=== PATIENT | male | born 1970 | race Caucasian/White ===

== ENCOUNTER 2016-08-02 21:39 | Inpatient (IN) ==
--- NOTE | 2016-08-02 21:46 | Emergency Department Note ---
Disposition Clinical Impression: Bipolar disorder, Suicidal ideation Disposition: Still a Patient Condition: Fair Referrals: NO,PCP [Primary Care Provider] - Forms: ED Satisfaction Letter Time of Disposition: 07:00 Psych HPI - General Chief Complaint: ED Psychiatric Symptoms Stated Complaint: SI/auditory hallucinations Time Seen by Provider: 08/02/16 21:42 Source: patient, EMS Mode of arrival: EMS Limitations: no limitations Nursing Notes Reviewed: Yes Vital Signs Reviewed: Yes - History of Present Illness HPI Narrative: Pt to ED c/o suicidal thoughts and auditory hallucinations. States is been hearing voices all day. Has been off his Respinol and Depakote for the past 4 days. Suicidal thoughts with a plan to jump in oncoming traffic. History of suicide attempt 1 in the past. The chest pain difficult in breathing abdominal pain fevers or vomiting. Pt complaint: suicidal ideation - Related Data Home Medications Medication Instructions Recorded Confirmed Divalproex (24 HR) [Depakote ER 2,000 mg PO HS 08/02/16 08/02/16 (24 HR)] RisperiDONE [RisperDAL] 2 mg PO DAILY 08/02/16 08/02/16 Allergies Allergy/AdvReac Type Severity Reaction Status Date / Time Penicillins Allergy Hives Verified 08/02/16 22:06 broccoli Allergy Swelling Uncoded 08/02/16 22:07 of Lip/Tongue/Throat All systems ED: reviewed and negative except as stated. Constitutional: Denies: fever Cardiovascular: Denies: chest pain Respiratory: Denies: cough Gastrointestinal: Denies: abdominal pain, vomiting, diarrhea Past Medical History - Past Medical History Attestation: Yes The following information was validated with the patient. Source: patient Medical history: Reports: non-contributory Surgical history: Reports: no surgical history, non-contributory Psychiatric history: Reports: anxiety, bipolar, depression, schizophrenia - Social History Smoking Status: Current every day smoker Smokeless Tobacco Status: No Alcohol use: Reports: none Drug use: Reports: marijuana Physical Exam Patient is calm and cooperative sitting on the edge of the bed in no acute distress. - General Limitations: no limitations General appearance: alert, in no apparent distress - Head Head exam: atraumatic, normocephalic - Eye Eye exam: Present: normal appearance, PERRL, EOMI - ENT ENT exam: normal exam - Neck Neck exam: Present: normal inspection - Chest Chest inspection: Present: normal inspection - Respiratory Respiratory exam: Present: normal lung sounds bilaterally - Cardiovascular Cardiovascular exam: Present: regular rate, normal rhythm, normal heart sounds - Abdominal Exam Abdominal exam: Present: soft, Non-Tender. Absent: tenderness, distention, guarding, rebound, rigidity - Neurological Exam Neurological exam: Present: alert, oriented X3, CN II-XII intact - Psychiatric Psychiatric exam: Present: normal affect, normal mood, suicidal ideation - Skin Skin exam: Present: warm, dry, intact Course Course Narrative: Patient, cooperative at this time. Agreeable to plan. [place] slip on chart. - Reevaluation(s) Reevaluation #1: Report called to one a. Time: 22:33 Reevaluation #2: Patient evaluated by psych. Attempting placement at this time. Time: 02:23 Reevaluation #3: Still attempting to contact psychiatrist at [facility] in [place]. Time: 04:33 Additional Reevaluation(s): Patient signed out to day shift at 0700 pending psych placement Vital Signs Temperature 98.1 F 08/02/16 21:40 Pulse Rate 81 08/02/16 21:40 Respiratory Rate 20 08/02/16 21:40 Blood Pressure 176/129 08/02/16 21:40 O2 Sat by Pulse Oximetry 96 08/02/16 21:40 Temperature 97.9 F 08/03/16 04:00 Pulse Rate 65 08/03/16 04:00 Respiratory Rate 20 08/03/16 04:00 Blood Pressure 160/92 08/03/16 04:00 O2 Sat by Pulse Oximetry 96 08/03/16 04:00 Oxygen Delivery Oxygen Delivery Room Air Psych - Lab Data Result diagrams: 08/02/16 21:54 08/02/16 21:54 Lab Results 08/02/16 08/02/16 08/02/16 Range/Units 21:45 21:45 21:54 WBC 10.0 (4.3-11.1) K/mcL RBC 4.78 (4.19-5.50) M/mcL Hgb 14.3 (12.9-16.9) g/dL Hct 42.4 (37.5-50.1) % MCV 88.7 (83.0-100.0) fL MCH 29.9 (28.0-33.3) pg MCHC 33.7 (31.6-35.5) g/dL RDW 15.2 H (11.5-14.5) % Plt Count 426 H (140-400) K/mcL MPV 8.4 L (9.4-12.4) fL Immature Gran % 0.3 (0-4) % Seg Neutrophils % 66.2 % Lymphocytes % 23.9 % Monocytes % 9.1 % Eosinophils % 0.2 % Basophils % 0.3 % Neutrophils # 6.6 (1.6-8.9) K/mcL Lymphocytes # 2.4 (0.6-4.6) K/mcL Monocytes # 0.9 (0.0-1.3) K/mcL Eosinophils # 0.0 (0.0-0.6) K/mcL Basophils # 0.0 (0.0-0.2) K/mcL Immature Plt Fraction 1.6 (1.1-6.1) % Sodium (136-145) mEq/L Potassium (3.5-4.5) mEq/L Chloride (98-109) mEq/L Carbon Dioxide (19-29) mEq/L BUN (8-26) mg/dL Creatinine (0.72-1.25) mg/dL Est GFR ( Amer) (> 60) Est GFR (Non-Af Amer) (> 60) BUN/Creatinine Ratio (6-26) Glucose (70-99) mg/dL Calculated Osmolality (280-300) Calcium (8.6-10.8) mg/dL Total Bilirubin (0.2-1.2) mg/dL Direct Bilirubin (0.0-0.5) mg/dL Indirect Bilirubin (0.0-1.2) mg/dL AST (5-34) Units/L ALT (0-55) Units/L Alkaline Phosphatase (38-126) Units/L Serum Total Protein (6.0-8.3) g/dL Albumin (3.5-5.0) g/dL Globulin (2.4-3.5) g/dL Albumin/Globulin Ratio (1.1-2.2) Amylase (25-125) Units/L Lipase (8-78) Units/L Urine Color Dark Yellow (Yellow) Urine Clarity Clear (Clear) Urine pH 5.5 (5.0-8.0) pH Units Ur Specific [place] > 1.030 H (1.010-1.025) Urine Protein Trace (Neg-Trace) mg/dL Urine Glucose (UA) Normal (Normal) mg/dL Urine Ketones Negative (Negative) mg/dL Urine Blood Negative (Negative) Urine Nitrite Negative (Negative) Urine Bilirubin Small H (Negative) Urine Urobilinogen Normal (Normal) mg/dL Ur Leukocyte Esterase Negative (Negative) Urine Microscopic RBC 3-5 H (0-3) per hpf Urine Microscopic WBC 0-3 (0-3) per hpf Ur Squamous Epith Cells Moderate H (None-Few) per lpf Urine Bacteria None Seen (None-Few) per hpf Hyaline Casts None Seen (None-Few) per lpf Salicylates (15-30) mg/dL Urine Opiates Screen Negative (Wdlxcz=178) ng/mL Acetaminophen (10-30) mcg/mL Ur Barbiturates Screen Negative (Ymfyap=085) ng/mL Ur Phencyclidine Scrn Negative (Cutoff=25) ng/mL Ur Amphetamines Screen Negative (Nwpfem=3602) ng/mL U Benzodiazepines Scrn Negative (Borchy=407) ng/mL Urine Cocaine Screen Positive H (Cutoff= 300) ng/mL U Marijuana (THC) Screen Positive H (Cutoff = 50) ng/mL Ethyl Alcohol (0-10) mg/dL 08/02/16 Range/Units 21:54 WBC (4.3-11.1) K/mcL RBC (4.19-5.50) M/mcL Hgb (12.9-16.9) g/dL Hct (37.5-50.1) % MCV (83.0-100.0) fL MCH (28.0-33.3) pg MCHC (31.6-35.5) g/dL RDW (11.5-14.5) % Plt Count (140-400) K/mcL MPV (9.4-12.4) fL Immature Gran % (0-4) % Seg Neutrophils % % Lymphocytes % % Monocytes % % Eosinophils % % Basophils % % Neutrophils # (1.6-8.9) K/mcL Lymphocytes # (0.6-4.6) K/mcL Monocytes # (0.0-1.3) K/mcL Eosinophils # (0.0-0.6) K/mcL Basophils # (0.0-0.2) K/mcL Immature Plt Fraction (1.1-6.1) % Sodium 137 (136-145) mEq/L Potassium 3.8 (3.5-4.5) mEq/L Chloride 105 (98-109) mEq/L Carbon Dioxide 24 (19-29) mEq/L BUN 15 (8-26) mg/dL Creatinine 0.79 (0.72-1.25) mg/dL Est GFR ( Amer) > 60 (> 60) Est GFR (Non-Af Amer) > 60 (> 60) BUN/Creatinine Ratio 19 (6-26) Glucose 101 H (70-99) mg/dL Calculated Osmolality 285 (280-300) Calcium 9.4 (8.6-10.8) mg/dL Total Bilirubin 1.0 (0.2-1.2) mg/dL Direct Bilirubin 0.4 (0.0-0.5) mg/dL Indirect Bilirubin 0.6 (0.0-1.2) mg/dL AST 36 H (5-34) Units/L ALT 26 (0-55) Units/L Alkaline Phosphatase 78 (38-126) Units/L Serum Total Protein 7.4 (6.0-8.3) g/dL Albumin 3.9 (3.5-5.0) g/dL Globulin 3.5 (2.4-3.5) g/dL Albumin/Globulin Ratio 1.1 (1.1-2.2) Amylase 33 (25-125) Units/L Lipase 20 (8-78) Units/L Urine Color (Yellow) Urine Clarity (Clear) Urine pH (5.0-8.0) pH Units Ur Specific [place] (1.010-1.025) Urine Protein (Neg-Trace) mg/dL Urine Glucose (UA) (Normal) mg/dL Urine Ketones (Negative) mg/dL Urine Blood (Negative) Urine Nitrite (Negative) Urine Bilirubin (Negative) Urine Urobilinogen (Normal) mg/dL Ur Leukocyte Esterase (Negative) Urine Microscopic RBC (0-3) per hpf Urine Microscopic WBC (0-3) per hpf Ur Squamous Epith Cells (None-Few) per lpf Urine Bacteria (None-Few) per hpf Hyaline Casts (None-Few) per lpf Salicylates < 5.0 L (15-30) mg/dL Urine Opiates Screen (Bcoqwz=814) ng/mL Acetaminophen < 1.0 L (10-30) mcg/mL Ur Barbiturates Screen (Kaybgg=326) ng/mL Ur Phencyclidine Scrn (Cutoff=25) ng/mL Ur Amphetamines Screen (Xubasu=3510) ng/mL U Benzodiazepines Scrn (Cdcbbn=018) ng/mL Urine Cocaine Screen (Cutoff= 300) ng/mL U Marijuana (THC) Screen (Cutoff = 50) ng/mL Ethyl Alcohol < 10 (0-10) mg/dL Psychiatric Medical Clearance - Medical Clearance Checklist Does the patient have a NEW psychiatric condition?: No Any abnormalities indicating possible medical illness?: No Medical History: No Social History Section defined Any abnormal vital signs prior to transfer?: Yes Current Vitals: Last Vital Signs Temp 97.9 F 08/03/16 04:00 Pulse 65 08/03/16 04:00 Resp 20 08/03/16 04:00 BP 160/92 08/03/16 04:00 Pulse Ox 96 08/03/16 04:00 Is the patient intoxicated or cognitively impaired?: No Psychiatric Lab Panel: Drug Levels and Toxicity 08/02/16 08/02/16 21:45 21:54 Urine Opiates Screen Negative Acetaminophen < 1.0 L Ur Barbiturates Screen Negative Ur Phencyclidine Scrn Negative Ur Amphetamines Screen Negative U Benzodiazepines Scrn Negative Urine Cocaine Screen Positive H U Marijuana (THC) Screen Positive H Ethyl Alcohol < 10 Any abnormalities on the physical exam?: No Any abnormal labs?: No Abnormal Labs: Abnormal lab results RDW 15.2 % (11.5-14.5) H 08/02/16 21:54 Plt Count 426 K/mcL (140-400) H 08/02/16 21:54 MPV 8.4 fL (9.4-12.4) L 08/02/16 21:54 Glucose 101 mg/dL (70-99) H 08/02/16 21:54 AST 36 Units/L (5-34) H 08/02/16 21:54 Ur Specific [place] > 1.030 (1.010-1.025) H 08/02/16 21:45 Urine Bilirubin Small (Negative) H 08/02/16 21:45 Urine Microscopic RBC 3-5 per hpf (0-3) H 08/02/16 21:45 Ur Squamous Epith Cells Moderate per lpf (None-Few) H 08/02/16 21:45 Salicylates < 5.0 mg/dL (15-30) L 08/02/16 21:54 Acetaminophen < 1.0 mcg/mL (10-30) L 08/02/16 21:54 Urine Cocaine Screen Positive ng/mL (Cutoff= 300) H 08/02/16 21:45 U Marijuana (THC) Screen Positive ng/mL (Cutoff = 50) H 08/02/16 21:45 Is the patient ambulatory?: Yes Is the patient a fall risk?: No Has the patient been medically cleared?: Yes Any acute medical condition require Tx prior to transfer?: No Statement of Medical Clearance: I have evaluated the patient, reviewed diagnostic information, and certify that the patient's medical condition is sufficiently stable that transfer to the psychiatric unit does not pose a significant risk of deterioration. Critical Care Time Critical Care Time: No
[2016-08-02 22:00] LABS: Basophils % 0.3 %; Eosinophils % 0.2 %; Hematocrit 42.4 % (37.5-50.1); Hemoglobin 14.3 g/dL (12.9-16.9); Immature Granulocytes % 0.3 % (0-4); Immature Platelets 1.6 % (1.1-6.1); Lymphocytes # 2.4 K/mcL (0.6-4.6); Lymphocytes % 23.9 %; Mean Corpuscular HGB Conc 33.7 g/dL (31.6-35.5); Mean Corpuscular Hemoglobin 29.9 pg (28.0-33.3); Mean Corpuscular Volume 88.7 fL (83.0-100.0); Mean Platelet Volume 8.4 fL (9.4-12.4); Monocytes # 0.9 K/mcL (0.0-1.3); Monocytes % 9.1 %; Neutrophils # 6.6 K/mcL (1.6-8.9); Platelet Count 426 K/mcL (140-400); Red Blood Count 4.78 M/mcL (4.19-5.50); Red Cell Distribution Width 15.2 % (11.5-14.5); Segmented Neutrophils % 66.2 %
[2016-08-02 22:07] LABS: Bilirubin,Urine Small (Negative); Blood,Urine Negative (Negative); Clarity,Urine Clear (Clear); Color,Urine Dark Yellow (Yellow); Glucose,Urine (UA) Normal (Normal); Ketones,Urine Negative (Negative); Leukocyte Esterase,Urine Negative (Negative); Nitrite,Urine Negative (Negative); PH,Urine 5.5 pH Units (5.0-8.0); Protein,Urine Trace mg/dL (Neg-Trace); Specific Gravity,Urine > 1.030 (1.010-1.025); Urobilinogen,Urine Normal (Normal)
[2016-08-02 22:10] LABS: Bacteria,Urine None Seen per hpf (None-Few); Hyaline Casts,Urine None Seen per lpf (None-Few); Squamous Epithelial Cell,Urine Moderate per lpf (None-Few); WBC,Urine 0-3 per hpf (0-3)
[2016-08-02 22:12] LABS: Amphetamine Screen,Urine Negative ng/mL (Cutoff=1000); Barbiturate Screen,Urine Negative ng/mL (Cutoff=200); Benzodiazepines Screen,Urine Negative ng/mL (Cutoff=200); Cannabinoid Screen,Urine Positive ng/mL (Cutoff = 50); Cocaine Screen,Urine Positive ng/mL (Cutoff= 300); Opiate Screen,Urine Negative ng/mL (Cutoff=300); Phencyclidine Screen,Urine Negative ng/mL (Cutoff=25)
[2016-08-02 22:17] LABS: BUN/Creatinine Ratio 19 (6-26); Blood Urea Nitrogen 15 mg/dL (8-26); Calcium 9.4 mg/dL (8.6-10.8); Carbon Dioxide 24 mEq/L (19-29); Chloride 105 mEq/L (98-109); Glucose 101 mg/dL (70-99); Osmolality,Calculated 285 (280-300); Potassium 3.8 mEq/L (3.5-4.5); Sodium 137 mEq/L (136-145); eGFR For African Americans > 60 (> 60); eGFR For Non-African Americans > 60 (> 60)
[2016-08-02 22:26] LABS: Acetaminophen < 1.0 mcg/mL (10-30); Ethanol < 10 mg/dL (0-10); Salicylate < 5.0 mg/dL (15-30)
[2016-08-03 01:56] LABS: Alanine Aminotransferase 26 Units/L (0-55); Albumin 3.9 g/dL (3.5-5.0); Albumin/Globulin Ratio 1.1 (1.1-2.2); Alkaline Phosphatase 78 Units/L (38-126); Amylase 33 Units/L (25-125); Aspartate Amino Transferase 36 Units/L (5-34); Bilirubin,Direct 0.4 mg/dL (0.0-0.5); Bilirubin,Indirect 0.6 mg/dL (0.0-1.2); Globulin 3.5 g/dL (2.4-3.5); Lipase 20 Units/L (8-78); Total Protein 7.4 g/dL (6.0-8.3)
--- NOTE | 2016-08-03 07:30 | Emergency Department Note ---
Disposition Clinical Impression: Bipolar disorder, Suicidal ideation Disposition: Still a Patient Condition: Fair Referrals: NO,PCP [Primary Care Provider] - Forms: ED Satisfaction Letter General Adult HPI - General Chief complaint: ED Psychiatric Symptoms Stated complaint: SI/auditory hallucinations Time Seen by Provider: 08/02/16 21:42 Source: patient, EMS Mode of arrival: EMS Limitations: no limitations Nursing Notes Reviewed: Yes Vital Signs Reviewed: Yes - History of Present Illness Pain Scale: 0 - Related Data Home Medications Medication Instructions Recorded Confirmed Divalproex (24 HR) [Depakote ER 2,000 mg PO HS 08/02/16 08/02/16 (24 HR)] RisperiDONE [RisperDAL] 2 mg PO DAILY 08/02/16 08/02/16 Allergies Allergy/AdvReac Type Severity Reaction Status Date / Time Penicillins Allergy Hives Verified 08/02/16 22:06 broccoli Allergy Swelling Uncoded 08/02/16 22:07 of Lip/Tongue/Throat Constitutional: Denies: fever Cardiovascular: Denies: chest pain Respiratory: Denies: cough Gastrointestinal: Denies: abdominal pain, vomiting, diarrhea Past Medical History - Past Medical History Medical history: Reports: non-contributory Surgical history: Reports: no surgical history, non-contributory Psychiatric history: Reports: anxiety, bipolar, depression, schizophrenia - Social History Smoking Status: Current every day smoker Smokeless Tobacco Status: No Alcohol use: Reports: none Drug use: Reports: marijuana Physical Exam - General Limitations: no limitations General appearance: alert, in no apparent distress Course Vital Signs Temperature 98.1 F 08/02/16 21:40 Pulse Rate 81 08/02/16 21:40 Respiratory Rate 20 08/02/16 21:40 Blood Pressure 176/129 08/02/16 21:40 O2 Sat by Pulse Oximetry 96 08/02/16 21:40 Temperature 98.7 F 08/03/16 07:58 Pulse Rate 70 08/03/16 12:05 Respiratory Rate 13 08/03/16 12:05 Blood Pressure 128/77 08/03/16 12:05 O2 Sat by Pulse Oximetry 97 08/03/16 12:05 Oxygen Delivery Oxygen Delivery Room Air Medical Decision Making - MDM Narrative Medical decision making narrative: I examined this patient and my medical decision-making was reviewed with the BRINE PROCESS OPERATOR/PA/Advanced Practice Nurse/Resident Physician. I agree with the documented findings, disposition and treatment plan as described except to the extent set forth below. Patient was seen by the evening ER staff and signed out to us this morning. Has a history of depression and possible suicidal ideations. Has been cooperative here. [facility] has seen him and does not have beds here so trying to place him elsewhere. If he needs anything the let us know he has been cooperative this point breakfasts is ordered and waiting on reevaluation [facility] placement. 1313 hrs.: [facility] is in a tried admitting to their unit. They asked that we had on a Depakote level for him. That is ordered. Waiting for it to resolve and then reevaluate with [facility]. - Lab Data Result diagrams: 08/02/16 21:54 08/02/16 21:54 Lab Results 08/02/16 08/02/16 08/02/16 Range/Units 21:45 21:45 21:54 WBC 10.0 (4.3-11.1) K/mcL RBC 4.78 (4.19-5.50) M/mcL Hgb 14.3 (12.9-16.9) g/dL Hct 42.4 (37.5-50.1) % MCV 88.7 (83.0-100.0) fL MCH 29.9 (28.0-33.3) pg MCHC 33.7 (31.6-35.5) g/dL RDW 15.2 H (11.5-14.5) % Plt Count 426 H (140-400) K/mcL MPV 8.4 L (9.4-12.4) fL Immature Gran % 0.3 (0-4) % Seg Neutrophils % 66.2 % Lymphocytes % 23.9 % Monocytes % 9.1 % Eosinophils % 0.2 % Basophils % 0.3 % Neutrophils # 6.6 (1.6-8.9) K/mcL Lymphocytes # 2.4 (0.6-4.6) K/mcL Monocytes # 0.9 (0.0-1.3) K/mcL Eosinophils # 0.0 (0.0-0.6) K/mcL Basophils # 0.0 (0.0-0.2) K/mcL Immature Plt Fraction 1.6 (1.1-6.1) % Sodium (136-145) mEq/L Potassium (3.5-4.5) mEq/L Chloride (98-109) mEq/L Carbon Dioxide (19-29) mEq/L BUN (8-26) mg/dL Creatinine (0.72-1.25) mg/dL Est GFR ( Amer) (> 60) Est GFR (Non-Af Amer) (> 60) BUN/Creatinine Ratio (6-26) Glucose (70-99) mg/dL Calculated Osmolality (280-300) Calcium (8.6-10.8) mg/dL Total Bilirubin (0.2-1.2) mg/dL Direct Bilirubin (0.0-0.5) mg/dL Indirect Bilirubin (0.0-1.2) mg/dL AST (5-34) Units/L ALT (0-55) Units/L Alkaline Phosphatase (38-126) Units/L Serum Total Protein (6.0-8.3) g/dL Albumin (3.5-5.0) g/dL Globulin (2.4-3.5) g/dL Albumin/Globulin Ratio (1.1-2.2) Amylase (25-125) Units/L Lipase (8-78) Units/L Urine Color Dark Yellow (Yellow) Urine Clarity Clear (Clear) Urine pH 5.5 (5.0-8.0) pH Units Ur Specific [place] > 1.030 H (1.010-1.025) Urine Protein Trace (Neg-Trace) mg/dL Urine Glucose (UA) Normal (Normal) mg/dL Urine Ketones Negative (Negative) mg/dL Urine Blood Negative (Negative) Urine Nitrite Negative (Negative) Urine Bilirubin Small H (Negative) Urine Urobilinogen Normal (Normal) mg/dL Ur Leukocyte Esterase Negative (Negative) Urine Microscopic RBC 3-5 H (0-3) per hpf Urine Microscopic WBC 0-3 (0-3) per hpf Ur Squamous Epith Cells Moderate H (None-Few) per lpf Urine Bacteria None Seen (None-Few) per hpf Hyaline Casts None Seen (None-Few) per lpf Salicylates (15-30) mg/dL Urine Opiates Screen Negative (Fdqijb=815) ng/mL Acetaminophen (10-30) mcg/mL Ur Barbiturates Screen Negative (Ydzdhv=125) ng/mL Ur Phencyclidine Scrn Negative (Cutoff=25) ng/mL Ur Amphetamines Screen Negative (Jwehbj=0586) ng/mL U Benzodiazepines Scrn Negative (Cfcxfx=259) ng/mL Urine Cocaine Screen Positive H (Cutoff= 300) ng/mL U Marijuana (THC) Screen Positive H (Cutoff = 50) ng/mL Ethyl Alcohol (0-10) mg/dL 08/02/16 Range/Units 21:54 WBC (4.3-11.1) K/mcL RBC (4.19-5.50) M/mcL Hgb (12.9-16.9) g/dL Hct (37.5-50.1) % MCV (83.0-100.0) fL MCH (28.0-33.3) pg MCHC (31.6-35.5) g/dL RDW (11.5-14.5) % Plt Count (140-400) K/mcL MPV (9.4-12.4) fL Immature Gran % (0-4) % Seg Neutrophils % % Lymphocytes % % Monocytes % % Eosinophils % % Basophils % % Neutrophils # (1.6-8.9) K/mcL Lymphocytes # (0.6-4.6) K/mcL Monocytes # (0.0-1.3) K/mcL Eosinophils # (0.0-0.6) K/mcL Basophils # (0.0-0.2) K/mcL Immature Plt Fraction (1.1-6.1) % Sodium 137 (136-145) mEq/L Potassium 3.8 (3.5-4.5) mEq/L Chloride 105 (98-109) mEq/L Carbon Dioxide 24 (19-29) mEq/L BUN 15 (8-26) mg/dL Creatinine 0.79 (0.72-1.25) mg/dL Est GFR ( Amer) > 60 (> 60) Est GFR (Non-Af Amer) > 60 (> 60) BUN/Creatinine Ratio 19 (6-26) Glucose 101 H (70-99) mg/dL Calculated Osmolality 285 (280-300) Calcium 9.4 (8.6-10.8) mg/dL Total Bilirubin 1.0 (0.2-1.2) mg/dL Direct Bilirubin 0.4 (0.0-0.5) mg/dL Indirect Bilirubin 0.6 (0.0-1.2) mg/dL AST 36 H (5-34) Units/L ALT 26 (0-55) Units/L Alkaline Phosphatase 78 (38-126) Units/L Serum Total Protein 7.4 (6.0-8.3) g/dL Albumin 3.9 (3.5-5.0) g/dL Globulin 3.5 (2.4-3.5) g/dL Albumin/Globulin Ratio 1.1 (1.1-2.2) Amylase 33 (25-125) Units/L Lipase 20 (8-78) Units/L Urine Color (Yellow) Urine Clarity (Clear) Urine pH (5.0-8.0) pH Units Ur Specific [place] (1.010-1.025) Urine Protein (Neg-Trace) mg/dL Urine Glucose (UA) (Normal) mg/dL Urine Ketones (Negative) mg/dL Urine Blood (Negative) Urine Nitrite (Negative) Urine Bilirubin (Negative) Urine Urobilinogen (Normal) mg/dL Ur Leukocyte Esterase (Negative) Urine Microscopic RBC (0-3) per hpf Urine Microscopic WBC (0-3) per hpf Ur Squamous Epith Cells (None-Few) per lpf Urine Bacteria (None-Few) per hpf Hyaline Casts (None-Few) per lpf Salicylates < 5.0 L (15-30) mg/dL Urine Opiates Screen (Pszgra=082) ng/mL Acetaminophen < 1.0 L (10-30) mcg/mL Ur Barbiturates Screen (Psjdqx=459) ng/mL Ur Phencyclidine Scrn (Cutoff=25) ng/mL Ur Amphetamines Screen (Usrplg=6837) ng/mL U Benzodiazepines Scrn (Zarrom=269) ng/mL Urine Cocaine Screen (Cutoff= 300) ng/mL U Marijuana (THC) Screen (Cutoff = 50) ng/mL Ethyl Alcohol < 10 (0-10) mg/dL
[2016-08-03] MEDS ORDERED: Mag Hydrox/Al Hydrox/Simeth 30 ML UDC PO PRN (15:57)
[2016-08-03] MEDS ORDERED: Haloperidol Lactate 5 MG/ML VIAL IM PRN (15:57)
[2016-08-03] MEDS ORDERED: *HR* LORazepam 1 MG TABLET PO PRN (15:57)
[2016-08-03] MEDS ORDERED: MOM Conc 10 ML UD.LIQ PO PRN (15:57)
[2016-08-03] MEDS ORDERED: Ibuprofen 400 MG TABLET PO PRN (15:57)
[2016-08-03] MEDS ORDERED: *HR* LORazepam 2 MG/ML VIAL IM PRN (15:57)
[2016-08-03] MEDS: Divalproex (24 HR) 500 MG TABLET PO SCH (21:31)
[2016-08-03] MEDS: risperiDONE 1 MG TABLET PO SCH (21:31)
[2016-08-04] MEDS: Divalproex (24 HR) 500 MG TABLET PO SCH ×2 (09:15→21:15)
[2016-08-04] MEDS: Nicotine 2 MG GUM BC PRN ×2 (10:31→14:55)
--- NOTE | 2016-08-04 12:11 | Psychiatry History & Physical ---
Date of Encounter: 08/04/16 Time of Encounter: 11:00 History of Present Illness Patient Stated Chief Complaint: Suicidal and hearing voices Medicare Admission Attestation: For traditional Medicare patients the provided hospital inpatient services are reasonable and necessary and in the case of services not specified as inpatient -only under 42 CFR 419.22 (n), that they are appropriately provided as inpatient services in accordance 42 CFR 412.3. For [facility] the patient may reasonably be expected to be discharged or transferred to a hospital within 96 hours after admission to the Critical [facility]. Admitted From: Emergency Dept History of Present Illness: Mr. Matthews is a 46 year old male admitted from the emergency room for suicidal ideation and auditory hallucinations. Patient called the police and reported feeling suicidal and planning to cut himself or running traffic to kill himself. Patient has long history of psychiatric treatment for depression or poor and he was out of his medication for about a week felt worse and then became suicidal and hopeless. Patient had previous hospitalization and psychiatric treatment in [place] and and had previous suicide attempt. His report one of them wants to hang himself. Patient also stated that he had been imprisoned at least 10 times and charged mostly was also assault. In the ED patient tox screen was positive for cocaine and THC. 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 Past Med Surg Social Fam HX - Past Medical History Medical history: non-contributory - Past Psychiatric History Psychiatric history: Reports: bipolar, depression, PTSD, prior suicide attempt, previous psychiatric hospitalization Past psychiatric history details: Hospitalization and treatment in [place], no records available at this time Family psychiatric history: Unknown Family History of Suicide: Unknown - Past Surgical History Surgical History: no surgical history, non-contributory - Social History Smoking Status: Current every day smoker Smokeless Tobacco Status: No Alcohol use: none Drug use: marijuana Medications & Allergies Divalproex (24 HR) [Depakote ER (24 HR)] 1,000 mg PO BID 08/02/16 [History] RisperiDONE [RisperDAL] 2 mg PO HS 08/02/16 [History] Allergies Penicillins Allergy (Verified 08/02/16 22:06) Hives broccoli Allergy (Uncoded 08/02/16 22:07) Swelling of Lip/Tongue/Throat Review of Systems Psychiatric: Reports: depression, suicidal ideation, auditory hallucinations, hopelessness Mental Status Exam Patient orientation: Yes Person, Yes Time, Yes Place Level of alertness: Alert Patient appearance: Appropriate, Well Groomed, Disheveled Behavior: calm, cooperative, nervous, anxious Psychomotor activity: Normal Eye contact: Maintains Eye Contact Mood description: Depressed, Anxious, Labile, Irritable Affect description: congruent with mood, labile, dysphoric, anxious Speech pattern: Normal rate, Normal rhythm, Normal tone Speech volume: Normal Thought process: Linear, Goal Oriented Thought content: Yes Suicidal ideation, No Homicidal ideation, No Overt delusions Perceptual disturbances: Yes Auditory hallucinations, No Visual hallucinations Attention span: Capable of Focused Attention Memory description: Grossly Intact Patient reliability: Reliable Historian Intelligence estimate: Average Judgment: Limited Insight: Partial Results - Vital Signs Vital signs: Temp Pulse Resp BP Pulse Ox 98.5 F 63 16 140/87 97 08/04/16 09:00 08/04/16 09:00 08/04/16 09:00 08/04/16 09:00 08/03/16 12:05 - Labs Labs: Laboratory Last Values WBC 10.0 K/mcL (4.3-11.1) 08/02/16 21:54 RBC 4.78 M/mcL (4.19-5.50) 08/02/16 21:54 Hgb 14.3 g/dL (12.9-16.9) 08/02/16 21:54 Hct 42.4 % (37.5-50.1) 08/02/16 21:54 MCV 88.7 fL (83.0-100.0) 08/02/16 21:54 MCH 29.9 pg (28.0-33.3) 08/02/16 21:54 MCHC 33.7 g/dL (31.6-35.5) 08/02/16 21:54 RDW 15.2 % (11.5-14.5) H 08/02/16 21:54 Plt Count 426 K/mcL (140-400) H 08/02/16 21:54 MPV 8.4 fL (9.4-12.4) L 08/02/16 21:54 Immature Gran % 0.3 % (0-4) 08/02/16 21:54 Seg Neutrophils % 66.2 % 08/02/16 21:54 Lymphocytes % 23.9 % 08/02/16 21:54 Monocytes % 9.1 % 08/02/16 21:54 Eosinophils % 0.2 % 08/02/16 21:54 Basophils % 0.3 % 08/02/16 21:54 Neutrophils # 6.6 K/mcL (1.6-8.9) 08/02/16 21:54 Lymphocytes # 2.4 K/mcL (0.6-4.6) 08/02/16 21:54 Monocytes # 0.9 K/mcL (0.0-1.3) 08/02/16 21:54 Eosinophils # 0.0 K/mcL (0.0-0.6) 08/02/16 21:54 Basophils # 0.0 K/mcL (0.0-0.2) 08/02/16 21:54 Immature Plt Fraction 1.6 % (1.1-6.1) 08/02/16 21:54 Sodium 137 mEq/L (136-145) 08/02/16 21:54 Potassium 3.8 mEq/L (3.5-4.5) 08/02/16 21:54 Chloride 105 mEq/L (98-109) 08/02/16 21:54 Carbon Dioxide 24 mEq/L (19-29) 08/02/16 21:54 BUN 15 mg/dL (8-26) 08/02/16 21:54 Creatinine 0.79 mg/dL (0.72-1.25) 08/02/16 21:54 Est GFR ( Amer) > 60 (> 60) 08/02/16 21:54 Est GFR (Non-Af Amer) > 60 (> 60) 08/02/16 21:54 BUN/Creatinine Ratio 19 (6-26) 08/02/16 21:54 Glucose 101 mg/dL (70-99) H 08/02/16 21:54 Calculated Osmolality 285 (280-300) 08/02/16 21:54 Calcium 9.4 mg/dL (8.6-10.8) 08/02/16 21:54 Total Bilirubin 1.0 mg/dL (0.2-1.2) 08/02/16 21:54 Direct Bilirubin 0.4 mg/dL (0.0-0.5) 08/02/16 21:54 Indirect Bilirubin 0.6 mg/dL (0.0-1.2) 08/02/16 21:54 AST 36 Units/L (5-34) H 08/02/16 21:54 ALT 26 Units/L (0-55) 08/02/16 21:54 Alkaline Phosphatase 78 Units/L (38-126) 08/02/16 21:54 Serum Total Protein 7.4 g/dL (6.0-8.3) 08/02/16 21:54 Albumin 3.9 g/dL (3.5-5.0) 08/02/16 21:54 Globulin 3.5 g/dL (2.4-3.5) 08/02/16 21:54 Albumin/Globulin Ratio 1.1 (1.1-2.2) 08/02/16 21:54 Amylase 33 Units/L (25-125) 08/02/16 21:54 Lipase 20 Units/L (8-78) 08/02/16 21:54 Urine Color Dark Yellow (Yellow) 08/02/16 21:45 Urine Clarity Clear (Clear) 08/02/16 21:45 Urine pH 5.5 pH Units (5.0-8.0) 08/02/16 21:45 Ur Specific [place] > 1.030 (1.010-1.025) H 08/02/16 21:45 Urine Protein Trace mg/dL (Neg-Trace) 08/02/16 21:45 Urine Glucose (UA) Normal mg/dL (Normal) 08/02/16 21:45 Urine Ketones Negative mg/dL (Negative) 08/02/16 21:45 Urine Blood Negative (Negative) 08/02/16 21:45 Urine Nitrite Negative (Negative) 08/02/16 21:45 Urine Bilirubin Small (Negative) H 08/02/16 21:45 Urine Urobilinogen Normal mg/dL (Normal) 08/02/16 21:45 Ur Leukocyte Esterase Negative (Negative) 08/02/16 21:45 Urine Microscopic RBC 3-5 per hpf (0-3) H 08/02/16 21:45 Urine Microscopic WBC 0-3 per hpf (0-3) 08/02/16 21:45 Ur Squamous Epith Cells Moderate per lpf (None-Few) H 08/02/16 21:45 Urine Bacteria None Seen per hpf (None-Few) 08/02/16 21:45 Hyaline Casts None Seen per lpf (None-Few) 08/02/16 21:45 Salicylates < 5.0 mg/dL (15-30) L 08/02/16 21:54 Urine Opiates Screen Negative ng/mL (Vvuemq=606) 08/02/16 21:45 Acetaminophen < 1.0 mcg/mL (10-30) L 08/02/16 21:54 Ur Barbiturates Screen Negative ng/mL (Lszrxp=755) 08/02/16 21:45 Valproic Acid < 2.00 mcg/mL (50-100) L 08/03/16 12:41 Ur Phencyclidine Scrn Negative ng/mL (Cutoff=25) 08/02/16 21:45 Ur Amphetamines Screen Negative ng/mL (Yimetw=6374) 08/02/16 21:45 U Benzodiazepines Scrn Negative ng/mL (Yqewzl=814) 08/02/16 21:45 Urine Cocaine Screen Positive ng/mL (Cutoff= 300) H 08/02/16 21:45 U Marijuana (THC) Screen Positive ng/mL (Cutoff = 50) H 08/02/16 21:45 Ethyl Alcohol < 10 mg/dL (0-10) 08/02/16 21:54 Assessment and Plan (1) Bipolar disorder with psychotic features Current visit: Yes Status: Acute Plan: Admit inpatient for safety and stabilization, Close observation, Suicide Precautions per unit protocol, Encourage participation in unit milieu, Group Therapy, Monitor sleep, Monitor appetite Additional Plan: Will check Depakote level Risks, benefits, side effects, alternatives discussed w/pt: Yes Patient agreeable to treatment: Yes (2) Substance abuse Current visit: Yes Status: Acute Plan: Admit inpatient for safety and stabilization, Close observation, Suicide Precautions per unit protocol, Encourage participation in unit milieu, Group Therapy, Monitor sleep, Monitor appetite Risks, benefits, side effects, alternatives discussed w/pt: Yes Patient agreeable to treatment: Yes
[2016-08-04] MEDS: hydrOXYzine pamoate 25 MG CAPSULE PO PRN (16:14)
[2016-08-04] MEDS: risperiDONE 1 MG TABLET PO SCH (21:15)
[2016-08-04] MEDS: traZODone 50 MG TABLET PO PRN (23:07)
[2016-08-05] MEDS: Divalproex (24 HR) 500 MG TABLET PO SCH ×3 (08:33→20:24)
[2016-08-05] MEDS: hydrOXYzine pamoate 25 MG CAPSULE PO PRN ×2 (11:11→14:14)
--- NOTE | 2016-08-05 11:22 | Psychiatry Progress Note ---
Date of Encounter: 08/05/16 Time of Encounter: 11:20 Subjective Interval history: Presents reporting follow-up. Staff report he is refusing medication, pacing the hold the hallways, irritable and wanted to be on a hunger strike. I discussed with the patient his treatment plan he reported having mood swings and suicidal ideation and he was willing to take his medication. I reviewed medication and made changes to address symptoms. We will continue to monitor. Review of Systems Psychiatric: Reports: depression, suicidal ideation, auditory hallucinations, hopelessness Objective: Exam Patient orientation: Yes Person, Yes Time, Yes Place Level of alertness: Alert Patient appearance: Appropriate, Unkempt Behavior: cooperative, agitated, restless, withdrawn Psychomotor activity: Increased Eye contact: Minimal Contact Mood description: Angry, Anxious, Labile, Irritable Affect description: congruent with mood, labile, constricted, anxious Speech pattern: Normal rate, Normal rhythm, Normal tone, Limited Speech volume: Normal Thought process: Linear, Goal Oriented Thought content: Yes Suicidal ideation, No Homicidal ideation, No Overt delusions Perceptual disturbances: No Auditory hallucinations, No Visual hallucinations Judgment: Fair Insight: Partial Results - Vital Signs Vital Signs: Temp Pulse Resp BP Pulse Ox 99.2 F 65 18 132/72 97 08/04/16 21:00 08/04/16 21:00 08/04/16 21:00 08/04/16 21:00 08/03/16 12:05 Assessment and Plan (1) Bipolar disorder with psychotic features Current visit: Yes Status: Acute Additional Plan: 1. Discontinue Risperdal 2. Olanzapine 10 mg twice a day 3. Gabapentin 400 mg 3 times a day We will continue to monitor Risks, benefits, side effects, alternatives discussed w/pt: Yes Patient agreeable to treatment: Yes (2) Substance abuse Current visit: Yes Status: Acute Risks, benefits, side effects, alternatives discussed w/pt: Yes Patient agreeable to treatment: Yes Consult Discharge Plan - Plan Referrals: NO,PCP [Primary Care Provider] -
[2016-08-05] MEDS: Nicotine 2 MG GUM BC PRN (13:39)
[2016-08-05] MEDS: Gabapentin 400 MG CAPSULE PO SCH ×2 (14:14→20:24)
[2016-08-05] MEDS: OLANZapine 10 MG TAB.RAPDIS PO SCH (20:24)
[2016-08-05] MEDS: traZODone 50 MG TABLET PO PRN ×2 (20:24→23:45)
[2016-08-06] MEDS: Divalproex (24 HR) 500 MG TABLET PO SCH (08:29)
[2016-08-06] MEDS: OLANZapine 10 MG TAB.RAPDIS PO SCH (08:29)
[2016-08-06] MEDS: Gabapentin 400 MG CAPSULE PO SCH ×2 (08:29→15:41)
[2016-08-06 08:56] VITALS: BP 132/83
[2016-08-06] MEDS: Nicotine 2 MG GUM BC PRN (12:49)
--- NOTE | 2016-08-06 15:22 | Discharge Summary ---
Date of Encounter: 08/06/16 Time of Encounter: 15:15 Diagnosis - Discharge Diagnosis (1) Bipolar disorder with psychotic features Status: Acute (2) Substance abuse Status: Acute Medications - Discharge Medications Prescriptions: Divalproex (24 HR) [Depakote ER (24 HR)] 1,000 mg PO BID #60 tab.er.24h Gabapentin [Neurontin] 400 mg PO TID #60 capsule OLANZapine [Zyprexa Zydis] 10 mg PO BID #60 tab.rapdis Divalproex (24 HR) [Depakote ER (24 HR)] 1,000 mg PO BID #60 tab.er.24h [Rx] Gabapentin [Neurontin] 400 mg PO TID #60 capsule 08/06/16 [Rx] OLANZapine [Zyprexa Zydis] 10 mg PO BID #60 tab.rapdis 08/06/16 [Rx] Allergies Penicillins Allergy (Verified 08/02/16 22:06) Hives broccoli Allergy (Uncoded 08/02/16 22:07) Swelling of Lip/Tongue/Throat Results Procedures and tests throughout hospitalization: Completed Lab Orders Category Date Time Status Valproate Routine Lab 08/06/16 09:20 Completed Provider Date of admission: 08/03/16 15:42 Primary care physician: PCP LELIA Discharging clinician: Manny Roland Assessment and Plan - Patient/Caregiver Discharge Instructions Activity: resume usual activities as tolerated Diet: regular diet - Follow up Plan Follow up with: NO,PCP [Primary Care Provider] - Functional capacity at discharge: independent ambulation Overall status at discharge: Stable Disposition: Home, Self-Care Hospital Course Hospital course: Mr. Matthews is a 46 year old male admitted for suicidal ideation and auditory hallucinations. For details of admission please see H&P On the unit patient medication order review with and adjusted. Risperidone was discontinued and he was started on olanzapine 10 mg twice a day and gabapentin 400 mg 3 times a day. Patient responded well to medication changes and he reported improved sleep he was not irritable and denies suicidal ideation. His Depakote level on admission was negative and on discharge was 60.24. His discharge plans were completed by social psychologist and he was discharged in stable condition. On discharge he was medically stable and denied any auditory hallucination and denies suicidal ideation and planning to be compliant with his treatment. - Time Spent with Patient Total time spent providing and/or coordinating discharge services: Less than 30 minutes Quality - Multiple Antipsychotics Patient discharged on 2 or more antipsychotic medications: No Procedures - Procedures Procedures: Medication Management, Crisis Stabilization, Supportive Therapy, Group Therapy, Psychoeducational Therapy Mental Status Exam - Mental Status Exam Patient orientation: Yes Person, Yes Time, Yes Place Level of alertness: Alert Patient appearance: Appropriate, Unkempt Behavior: calm, cooperative, anxious Psychomotor activity: Increased Eye contact: Minimal Contact Mood description: Euthymic/stable Affect description: congruent with mood, full range Speech pattern: Normal rate, Normal rhythm, Normal tone Speech Volume: Normal Thought process: Linear, Goal Oriented Thought Content: No Suicidal ideation, No Homicidal ideation, No Overt delusions Perceptual Disturbances: No Auditory hallucinations, No Visual hallucinations Judgment: Limited Insight: Partial
== END 2016-08-06 16:15 | disposition home or self-care (01) | DRG 753 ==
LOC: EMEROO 21:39 → 1ANU 08-03 15:42
PROVIDERS: ADMIT Psychiatry & Neurology Psychiatry; ATTEND Psychiatry & Neurology Psychiatry

== ENCOUNTER 2017-11-17 01:26 | Inpatient (IN) ==
[2017-11-17 01:51] LABS: Bilirubin,Urine Negative (Negative); Blood,Urine Negative (Negative); Clarity,Urine Clear (Clear); Color,Urine Yellow (Yellow); Glucose,Urine (UA) Normal (Normal); Ketones,Urine Trace mg/dL (Negative); Leukocyte Esterase,Urine Negative (Negative); Nitrite,Urine Negative (Negative); PH,Urine 5.5 pH Units (5.0-8.0); Protein,Urine Negative (Neg-Trace); Specific Gravity,Urine > 1.030 (1.010-1.025); Urobilinogen,Urine Normal (Normal)
[2017-11-17 02:22] LABS: Basophils % 0.4 %; Eosinophils % 0.1 %; Hematocrit 40.5 % (37.5-50.1); Hemoglobin 13.8 g/dL (12.9-16.9); Immature Granulocytes % 0.2 % (0-4); Lymphocytes % 22.3 %; Mean Corpuscular HGB Conc 34.1 g/dL (31.6-35.5); Mean Corpuscular Hemoglobin 30.9 pg (28.0-33.3); Mean Corpuscular Volume 90.8 fL (83.0-100.0); Mean Platelet Volume 9.2 fL (9.4-12.4); Monocytes # 0.8 K/mcL (0.0-1.3); Monocytes % 8.2 %; Neutrophils # 6.3 K/mcL (1.6-8.9); Platelet Count 292 K/mcL (140-400); Red Blood Count 4.46 M/mcL (4.19-5.50); Segmented Neutrophils % 68.8 %
[2017-11-17 02:33] LABS: Amphetamine Screen,Urine Negative ng/mL (Cutoff=1000); Barbiturate Screen,Urine Negative ng/mL (Cutoff=200); Benzodiazepines Screen,Urine Negative ng/mL (Cutoff=200); Cannabinoid Screen,Urine Positive ng/mL (Cutoff = 50); Cocaine Screen,Urine Negative ng/mL (Cutoff= 300); Opiate Screen,Urine Negative ng/mL (Cutoff=300); Phencyclidine Screen,Urine Negative ng/mL (Cutoff=25)
[2017-11-17 02:46] LABS: Acetaminophen < 10 mcg/mL (10-20); BUN/Creatinine Ratio 20 (6-26); Blood Urea Nitrogen 22 mg/dL (6-20); Calcium 9.4 mg/dL (8.6-10.3); Carbon Dioxide 28 mEq/L (23-29); Chloride 107 mEq/L (98-107); Ethanol < 10 mg/dL (Less than 10); Glucose 107 mg/dL (70-105); Osmolality,Calculated 296 (280-300); Salicylate < 2.5 mg/dL (15.0-30.0); Sodium 141 mEq/L (136-145); eGFR For Non-African Americans > 60 (> 60)
--- NOTE | 2017-11-17 03:49 | Emergency Department Note ---
Disposition Clinical Impression: Suicidal ideation, Bipolar disorder, Visual hallucinations Disposition: Transfer Psychiatric Hosp Condition: Good Referrals: NONE,PCP [Primary Care Provider] - Forms: ED Satisfaction Letter Time of Disposition: 05:26 Psych HPI - General Chief Complaint: ED Psychiatric Symptoms Stated Complaint: SI Time Seen by Provider: 11/17/17 01:43 Source: patient Mode of arrival: ambulatory Limitations: no limitations Nursing Notes Reviewed: Yes Vital Signs Reviewed: Yes - History of Present Illness HPI Narrative: Patient presents to the ED the chief complaint of suicidal ideation and visual hallucinations. Patient found by the [place] with thoughts of jumping off it. States that he has been thinking about that for a while and stood there for some unknown amount of time considering jumping off. He said some life stressors that he thinks are making it worse. Does report some visual hallucinations, seeing objects move and shadows in front of him that other people's and there. No auditory hallucinations. Denies any drug use. Is currently suicidal. - Related Data Previous Rx's Medication Instructions Recorded Divalproex (24 HR) [Depakote ER 1,000 mg PO BID #60 tab.er.24h 08/06/16 (24 HR)] Gabapentin [Neurontin] 400 mg PO TID #60 capsule 08/06/16 OLANZapine [Zyprexa Zydis] 10 mg PO BID #60 tab.rapdis 08/06/16 Allergies Allergy/AdvReac Type Severity Reaction Status Date / Time Penicillins Allergy Hives Verified 08/02/16 22:06 broccoli Allergy Swelling Uncoded 08/02/16 22:07 of Lip/Tongue/Throat Review of Systems: As reviewed in the HPI. All other systems reviewed are negative or normal. Past Medical History - Past Medical History Attestation: Yes The following information was validated with the patient. Source: patient Medical history: Reports: non-contributory, hepatitis Surgical history: Reports: no surgical history, non-contributory Psychiatric history: Reports: bipolar, depression, PTSD, prior suicide attempt, previous psychiatric hospitalization - Social History Smoking Status: Current every day smoker Smokeless Tobacco Status: No Alcohol use: Reports: rarely, recent Drug use: Reports: marijuana Physical Exam CONSTITUTIONAL: [well appearing in no acute distress] SKIN: [Warm, dry, and intact without rash] EYES: [extraocular movements are grossly intact, clear conjunctiva] HENT: [Normocephalic, atraumatic, moist mucus membranes] NECK: [no obvious swelling, normal range of motion] PULMONARY: [normal chest rise and fall, no respiratory distress or stridor CARDIOVASCULAR: [regular rate, distal extremities are warm and well perfused] GASTROINSTESTINAL: [nondistended, non-tender] GENITOURINARY: [deferred] NEUROLOGIC: [normal speech, moves all extremities] MUSCULOSKELETAL: [no gross deformities, atraumatic] PSYCHIATRIC: [Flat affect] - General Limitations: no limitations General appearance: alert, in no apparent distress Course - Reevaluation(s) Reevaluation #1: 1A will admit. Vital Signs Temperature 98.2 F 11/17/17 01:28 Pulse Rate 104 11/17/17 01:28 Respiratory Rate 16 11/17/17 01:28 Blood Pressure 134/88 11/17/17 01:28 O2 Sat by Pulse Oximetry 96 11/17/17 01:28 Temperature 98.2 F 11/17/17 01:28 Pulse Rate 104 11/17/17 01:28 Respiratory Rate 16 11/17/17 01:28 Blood Pressure 134/88 11/17/17 01:28 O2 Sat by Pulse Oximetry 96 11/17/17 01:28 Oxygen Delivery Oxygen Delivery Room Air Psych - Lab Data Result diagrams: 11/17/17 02:12 11/17/17 02:12 Lab Results 11/17/17 11/17/17 11/17/17 Range/Units 01:30 02:12 02:12 WBC 9.1 (4.3-11.1) K/mcL RBC 4.46 (4.19-5.50) M/mcL Hgb 13.8 (12.9-16.9) g/dL Hct 40.5 (37.5-50.1) % MCV 90.8 (83.0-100.0) fL MCH 30.9 (28.0-33.3) pg MCHC 34.1 (31.6-35.5) g/dL RDW 13.0 (11.5-14.5) % Plt Count 292 (140-400) K/mcL MPV 9.2 L (9.4-12.4) fL Immature Gran % 0.2 (0-4) % Seg Neutrophils % 68.8 % Lymphocytes % 22.3 % Monocytes % 8.2 % Eosinophils % 0.1 % Basophils % 0.4 % Neutrophils # 6.3 (1.6-8.9) K/mcL Lymphocytes # 2.0 (0.6-4.6) K/mcL Monocytes # 0.8 (0.0-1.3) K/mcL Eosinophils # 0.0 (0.0-0.6) K/mcL Basophils # 0.0 (0.0-0.2) K/mcL Sodium (136-145) mEq/L Potassium (3.5-5.1) mEq/L Chloride (98-107) mEq/L Carbon Dioxide (23-29) mEq/L BUN (6-20) mg/dL Creatinine (0.70-1.30) mg/dL Est GFR ( Amer) (> 60) Est GFR (Non-Af Amer) (> 60) BUN/Creatinine Ratio (6-26) Glucose (70-105) mg/dL Calculated Osmolality (280-300) Calcium (8.6-10.3) mg/dL Urine Color Yellow (Yellow) Urine Clarity Clear (Clear) Urine pH 5.5 (5.0-8.0) pH Units Ur Specific [place] > 1.030 H (1.010-1.025) Urine Protein Negative (Neg-Trace) mg/dL Urine Glucose (UA) Normal (Normal) mg/dL Urine Ketones Trace H (Negative) mg/dL Urine Blood Negative (Negative) Urine Nitrite Negative (Negative) Urine Bilirubin Negative (Negative) Urine Urobilinogen Normal (Normal) mg/dL Ur Leukocyte Esterase Negative (Negative) Salicylates (15.0-30.0) mg/dL Urine Opiates Screen Negative (Fqfwhk=882) ng/mL Acetaminophen (10-20) mcg/mL Ur Barbiturates Screen Negative (Jiagtn=354) ng/mL Ur Phencyclidine Scrn Negative (Cutoff=25) ng/mL Ur Amphetamines Screen Negative (Syteku=5692) ng/mL U Benzodiazepines Scrn Negative (Cotlem=309) ng/mL Urine Cocaine Screen Negative (Cutoff= 300) ng/mL U Marijuana (THC) Screen Positive H (Cutoff = 50) ng/mL Ur Drug Screen Interp See Below Ethyl Alcohol (Less than 10) mg/dL 11/17/17 Range/Units 02:12 WBC (4.3-11.1) K/mcL RBC (4.19-5.50) M/mcL Hgb (12.9-16.9) g/dL Hct (37.5-50.1) % MCV (83.0-100.0) fL MCH (28.0-33.3) pg MCHC (31.6-35.5) g/dL RDW (11.5-14.5) % Plt Count (140-400) K/mcL MPV (9.4-12.4) fL Immature Gran % (0-4) % Seg Neutrophils % % Lymphocytes % % Monocytes % % Eosinophils % % Basophils % % Neutrophils # (1.6-8.9) K/mcL Lymphocytes # (0.6-4.6) K/mcL Monocytes # (0.0-1.3) K/mcL Eosinophils # (0.0-0.6) K/mcL Basophils # (0.0-0.2) K/mcL Sodium 141 (136-145) mEq/L Potassium 4.0 (3.5-5.1) mEq/L Chloride 107 (98-107) mEq/L Carbon Dioxide 28 (23-29) mEq/L BUN 22 H (6-20) mg/dL Creatinine 1.11 (0.70-1.30) mg/dL Est GFR ( Amer) > 60 (> 60) Est GFR (Non-Af Amer) > 60 (> 60) BUN/Creatinine Ratio 20 (6-26) Glucose 107 H (70-105) mg/dL Calculated Osmolality 296 (280-300) Calcium 9.4 (8.6-10.3) mg/dL Urine Color (Yellow) Urine Clarity (Clear) Urine pH (5.0-8.0) pH Units Ur Specific [place] (1.010-1.025) Urine Protein (Neg-Trace) mg/dL Urine Glucose (UA) (Normal) mg/dL Urine Ketones (Negative) mg/dL Urine Blood (Negative) Urine Nitrite (Negative) Urine Bilirubin (Negative) Urine Urobilinogen (Normal) mg/dL Ur Leukocyte Esterase (Negative) Salicylates < 2.5 L (15.0-30.0) mg/dL Urine Opiates Screen (Eclchz=892) ng/mL Acetaminophen < 10 L (10-20) mcg/mL Ur Barbiturates Screen (Dykzbf=810) ng/mL Ur Phencyclidine Scrn (Cutoff=25) ng/mL Ur Amphetamines Screen (Ghkedl=1265) ng/mL U Benzodiazepines Scrn (Ritzfl=175) ng/mL Urine Cocaine Screen (Cutoff= 300) ng/mL U Marijuana (THC) Screen (Cutoff = 50) ng/mL Ur Drug Screen Interp Ethyl Alcohol < 10 (Less than 10) mg/dL Psychiatric Medical Clearance - Medical Clearance Checklist Medical History: No Social History Section defined Current Vitals: Last Vital Signs Temp 98.2 F 11/17/17 01:28 Pulse 104 11/17/17 01:28 Resp 16 11/17/17 01:28 BP 134/88 11/17/17 01:28 Pulse Ox 96 11/17/17 01:28 Psychiatric Lab Panel: Drug Levels and Toxicity 11/17/17 11/17/17 02:12 02:12 Urine Opiates Screen Negative Acetaminophen < 10 L Ur Barbiturates Screen Negative Ur Phencyclidine Scrn Negative Ur Amphetamines Screen Negative U Benzodiazepines Scrn Negative Urine Cocaine Screen Negative U Marijuana (THC) Screen Positive H Ethyl Alcohol < 10 Abnormal Labs: Abnormal lab results MPV 9.2 fL (9.4-12.4) L 11/17/17 02:12 BUN 22 mg/dL (6-20) H 11/17/17 02:12 Glucose 107 mg/dL (70-105) H 11/17/17 02:12 Ur Specific [place] > 1.030 (1.010-1.025) H 11/17/17 01:30 Urine Ketones Trace mg/dL (Negative) H 11/17/17 01:30 Salicylates < 2.5 mg/dL (15.0-30.0) L 11/17/17 02:12 Acetaminophen < 10 mcg/mL (10-20) L 11/17/17 02:12 U Marijuana (THC) Screen Positive ng/mL (Cutoff = 50) H 11/17/17 02:12 Statement of Medical Clearance: I have evaluated the patient, reviewed diagnostic information, and certify that the patient's medical condition is sufficiently stable that transfer to the psychiatric unit does not pose a significant risk of deterioration.
[2017-11-17] MEDS ORDERED: *HR* LORazepam 1 MG TABLET PO ONE (05:08)
--- NOTE | 2017-11-17 05:32 | Emergency Department Note ---
Disposition Clinical Impression: Suicidal ideation, Bipolar disorder, Visual hallucinations Disposition: Transfer Psychiatric Hosp Condition: Good Referrals: NONE,PCP [Primary Care Provider] - Forms: ED Satisfaction Letter General Adult HPI - General Chief complaint: ED Psychiatric Symptoms Stated complaint: SI Time Seen by Provider: 11/17/17 01:43 Source: patient Mode of arrival: ambulatory Limitations: no limitations Nursing Notes Reviewed: Yes Vital Signs Reviewed: Yes - History of Present Illness Pain Scale: 0 - Related Data Previous Rx's Medication Instructions Recorded Divalproex (24 HR) [Depakote ER 1,000 mg PO BID #60 tab.er.24h 08/06/16 (24 HR)] Gabapentin [Neurontin] 400 mg PO TID #60 capsule 08/06/16 OLANZapine [Zyprexa Zydis] 10 mg PO BID #60 tab.rapdis 08/06/16 Allergies Allergy/AdvReac Type Severity Reaction Status Date / Time Penicillins Allergy Hives Verified 08/02/16 22:06 broccoli Allergy Swelling Uncoded 08/02/16 22:07 of Lip/Tongue/Throat Past Medical History - Past Medical History Medical history: Reports: non-contributory, hepatitis Surgical history: Reports: no surgical history, non-contributory Psychiatric history: Reports: bipolar, depression, PTSD, prior suicide attempt, previous psychiatric hospitalization - Social History Smoking Status: Current every day smoker Smokeless Tobacco Status: No Alcohol use: Reports: rarely, recent Drug use: Reports: marijuana Physical Exam - General Limitations: no limitations General appearance: alert, in no apparent distress Course Vital Signs Temperature 98.2 F 11/17/17 01:28 Pulse Rate 104 11/17/17 01:28 Respiratory Rate 16 11/17/17 01:28 Blood Pressure 134/88 11/17/17 01:28 O2 Sat by Pulse Oximetry 96 11/17/17 01:28 Temperature 98.2 F 11/17/17 01:28 Pulse Rate 104 11/17/17 01:28 Respiratory Rate 16 11/17/17 01:28 Blood Pressure 134/88 11/17/17 01:28 O2 Sat by Pulse Oximetry 96 11/17/17 01:28 Oxygen Delivery Oxygen Delivery Room Air Medical Decision Making - Lab Data Lab results reviewed: Yes I reviewed the patient's lab results. Result diagrams: 11/17/17 02:12 11/17/17 02:12 Lab Results 11/17/17 11/17/17 11/17/17 Range/Units 01:30 02:12 02:12 WBC 9.1 (4.3-11.1) K/mcL RBC 4.46 (4.19-5.50) M/mcL Hgb 13.8 (12.9-16.9) g/dL Hct 40.5 (37.5-50.1) % MCV 90.8 (83.0-100.0) fL MCH 30.9 (28.0-33.3) pg MCHC 34.1 (31.6-35.5) g/dL RDW 13.0 (11.5-14.5) % Plt Count 292 (140-400) K/mcL MPV 9.2 L (9.4-12.4) fL Immature Gran % 0.2 (0-4) % Seg Neutrophils % 68.8 % Lymphocytes % 22.3 % Monocytes % 8.2 % Eosinophils % 0.1 % Basophils % 0.4 % Neutrophils # 6.3 (1.6-8.9) K/mcL Lymphocytes # 2.0 (0.6-4.6) K/mcL Monocytes # 0.8 (0.0-1.3) K/mcL Eosinophils # 0.0 (0.0-0.6) K/mcL Basophils # 0.0 (0.0-0.2) K/mcL Sodium (136-145) mEq/L Potassium (3.5-5.1) mEq/L Chloride (98-107) mEq/L Carbon Dioxide (23-29) mEq/L BUN (6-20) mg/dL Creatinine (0.70-1.30) mg/dL Est GFR ( Amer) (> 60) Est GFR (Non-Af Amer) (> 60) BUN/Creatinine Ratio (6-26) Glucose (70-105) mg/dL Calculated Osmolality (280-300) Calcium (8.6-10.3) mg/dL Urine Color Yellow (Yellow) Urine Clarity Clear (Clear) Urine pH 5.5 (5.0-8.0) pH Units Ur Specific [place] > 1.030 H (1.010-1.025) Urine Protein Negative (Neg-Trace) mg/dL Urine Glucose (UA) Normal (Normal) mg/dL Urine Ketones Trace H (Negative) mg/dL Urine Blood Negative (Negative) Urine Nitrite Negative (Negative) Urine Bilirubin Negative (Negative) Urine Urobilinogen Normal (Normal) mg/dL Ur Leukocyte Esterase Negative (Negative) Salicylates (15.0-30.0) mg/dL Urine Opiates Screen Negative (Zeecgq=661) ng/mL Acetaminophen (10-20) mcg/mL Ur Barbiturates Screen Negative (Xmgwgo=081) ng/mL Ur Phencyclidine Scrn Negative (Cutoff=25) ng/mL Ur Amphetamines Screen Negative (Gasewe=8975) ng/mL U Benzodiazepines Scrn Negative (Nziiha=397) ng/mL Urine Cocaine Screen Negative (Cutoff= 300) ng/mL U Marijuana (THC) Screen Positive H (Cutoff = 50) ng/mL Ur Drug Screen Interp See Below Ethyl Alcohol (Less than 10) mg/dL 11/17/17 Range/Units 02:12 WBC (4.3-11.1) K/mcL RBC (4.19-5.50) M/mcL Hgb (12.9-16.9) g/dL Hct (37.5-50.1) % MCV (83.0-100.0) fL MCH (28.0-33.3) pg MCHC (31.6-35.5) g/dL RDW (11.5-14.5) % Plt Count (140-400) K/mcL MPV (9.4-12.4) fL Immature Gran % (0-4) % Seg Neutrophils % % Lymphocytes % % Monocytes % % Eosinophils % % Basophils % % Neutrophils # (1.6-8.9) K/mcL Lymphocytes # (0.6-4.6) K/mcL Monocytes # (0.0-1.3) K/mcL Eosinophils # (0.0-0.6) K/mcL Basophils # (0.0-0.2) K/mcL Sodium 141 (136-145) mEq/L Potassium 4.0 (3.5-5.1) mEq/L Chloride 107 (98-107) mEq/L Carbon Dioxide 28 (23-29) mEq/L BUN 22 H (6-20) mg/dL Creatinine 1.11 (0.70-1.30) mg/dL Est GFR ( Amer) > 60 (> 60) Est GFR (Non-Af Amer) > 60 (> 60) BUN/Creatinine Ratio 20 (6-26) Glucose 107 H (70-105) mg/dL Calculated Osmolality 296 (280-300) Calcium 9.4 (8.6-10.3) mg/dL Urine Color (Yellow) Urine Clarity (Clear) Urine pH (5.0-8.0) pH Units Ur Specific [place] (1.010-1.025) Urine Protein (Neg-Trace) mg/dL Urine Glucose (UA) (Normal) mg/dL Urine Ketones (Negative) mg/dL Urine Blood (Negative) Urine Nitrite (Negative) Urine Bilirubin (Negative) Urine Urobilinogen (Normal) mg/dL Ur Leukocyte Esterase (Negative) Salicylates < 2.5 L (15.0-30.0) mg/dL Urine Opiates Screen (Shhhoz=455) ng/mL Acetaminophen < 10 L (10-20) mcg/mL Ur Barbiturates Screen (Kbfuni=011) ng/mL Ur Phencyclidine Scrn (Cutoff=25) ng/mL Ur Amphetamines Screen (Srawke=2702) ng/mL U Benzodiazepines Scrn (Erabqi=790) ng/mL Urine Cocaine Screen (Cutoff= 300) ng/mL U Marijuana (THC) Screen (Cutoff = 50) ng/mL Ur Drug Screen Interp Ethyl Alcohol < 10 (Less than 10) mg/dL Attestation Statement - Attestation Attestation: I, Shaan Parry MD, personally evaluated this patient and discussed their management with the resident physician. I reviewed the resident's note and agree with the documented findings, medical decision making, and plan of care. 47-year-old male presents to the emergency department with a complaint of suicidal ideations with a plan to jump off a bridge. He has had suicidal thoughts in the past. Denies homicidal ideation. On examination patient is a well-developed well-nourished well-appearing male in no acute distress. He is alert and oriented 3. There is no cyanosis or diaphoresis. Breath sounds are clear and equal bilaterally. Heart regular rate and rhythm. Abdomen soft and nontender with normal bowel sounds. No gross focal neurological deficits. Labs reviewed and patient medically cleared for psychiatric consultation. [address] psychiatry department was consulted and evaluated the patient in the emergency department and after evaluation the patient is being admitted to the [address] psychiatric unit.
[2017-11-17] MEDS ORDERED: Haloperidol Lactate 5 MG/ML VIAL IM PRN ×2 (06:24→06:25)
[2017-11-17] MEDS ORDERED: *HR* LORazepam 2 MG/ML VIAL IM PRN ×2 (06:24→06:25)
[2017-11-17] MEDS ORDERED: Acetaminophen 325 MG TABLET PO PRN (06:24)
[2017-11-17] MEDS ORDERED: *HR* LORazepam 1 MG TABLET PO PRN ×2 (06:24→06:25)
[2017-11-17] MEDS ORDERED: MOM Conc 10 ML UD.LIQ PO PRN ×2 (06:24→06:25)
[2017-11-17] MEDS ORDERED: Mag Hydrox/Al Hydrox/Simeth 30 ML UDC PO PRN ×2 (06:24→06:25)
[2017-11-17] MEDS ORDERED: hydrOXYzine pamoate 25 MG CAPSULE PO PRN (06:24)
[2017-11-17] MEDS ORDERED: traZODone 50 MG TABLET PO PRN (06:24)
[2017-11-17] MEDS: Nicotine 2 MG GUM BC PRN ×4 (07:26→19:04)
[2017-11-17] MEDS ORDERED: Nicotine 21 MG PATCH.TD24 TD SCH (09:00)
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
[2017-11-17] MEDS ORDERED: OLANZapine 5 MG TAB.RAPDIS PO ONE (13:05)
[2017-11-17] MEDS: OLANZapine 10 MG TAB.RAPDIS PO SCH (20:18)
[2017-11-17] MEDS: Divalproex (12 HR) 500 MG TABLET PO SCH (20:18)
[2017-11-18] MEDS: Nicotine 2 MG GUM BC PRN ×5 (08:48→20:33)
[2017-11-18] MEDS: Divalproex (12 HR) 500 MG TABLET PO SCH ×2 (08:48→20:32)
--- NOTE | 2017-11-18 12:14 | Psychiatry Progress Note ---
Date of Encounter: 11/18/17 Time of Encounter: 11:55 Subjective Interval history: Patient seen today case d/w treatment team as per team he has been restless , pacing in hallways but not agitated. States he is following me every where i go , lisette is there , i saw him this morning and seen him couple of times since then,he is not saying anything, it extremely bothers me and i want to kill myself so he can leave me alone, i have been thinking about hanging myself i have several ways. i am very depress and tired of living on this earth. patient is acutely psychotic and suicidal. will have him monitor very closely , no sheets in his room. supportive counselling given , educated to talk to staff as needed. he agreed denies side effects. will increase zyprexa to 20 mg / day. Review of Systems Psychiatric: Reports: depression, anxiety, abnormal sleep pattern, suicidal ideation, auditory hallucinations, visual hallucinations, difficulty concentrating, irritability, mood swings Results - Vital Signs Vital Signs: Temp Pulse Resp BP Pulse Ox 97.2 F L 66 18 125/82 96 11/18/17 09:00 11/18/17 09:00 11/18/17 09:00 11/18/17 09:00 11/17/17 01:28 Assessment and Plan (1) Suicidal ideation Current visit: Yes Status: Acute Risks, benefits, side effects, alternatives discussed w/pt: Yes Patient agreeable to treatment: Yes (2) Bipolar disorder with psychotic features Current visit: No Status: Acute Risks, benefits, side effects, alternatives discussed w/pt: Yes Patient agreeable to treatment: Yes (3) Substance abuse Current visit: No Status: Acute Risks, benefits, side effects, alternatives discussed w/pt: Yes Consult Discharge Plan - Plan Referrals: [facility] [Outside] (Walk in appointments at [address] [place] [address]; Friday-Friday 8:00am until noon. Please bring photo ID, insurance card and utility bill or proof of residence.) Psychiatry Exam - Constitutional Vitals: Temp Pulse Resp BP Pulse Ox 97.2 F L 66 18 125/82 96 11/18/17 09:00 11/18/17 09:00 11/18/17 09:00 11/18/17 09:00 11/17/17 01:28 General appearance: age & developmentally appropriate, well-groomed, well- nourished - Musculoskeletal Gait: normal Station: relaxed Strength & Tone: normal for patient - Psychiatric Patient Orientation: Yes Person, Yes Time, Yes Place Level of alertness: Alert Behavior: cooperative, guarded, distractible Psychomotor activity: Increased Eye Contact: Minimal Contact Mood Description: Anxious Affect description: blunted Speech Volume: Normal Speech pattern: slowed Language & Vocabulary: consistent with education Thought Process: Racing Thought Content: Yes Suicidal ideation, Yes Preoccupation, Yes Paranoid delusion Perceptual Disturbances: Yes Auditory hallucinations, Yes Visual hallucinations Attention Span Ability: Unable to Sustain Attention Memory Description: Grossly Intact Patient Reliability: Reliable Historian Fund of knowledge: Yes average Intelligence Estimate: Average Judgment: Poor Insight: Minimal
[2017-11-18] MEDS: hydrOXYzine pamoate 25 MG CAPSULE PO PRN (20:31)
[2017-11-18] MEDS: OLANZapine 10 MG TAB.RAPDIS PO SCH (20:32)
[2017-11-18] MEDS: traZODone 50 MG TABLET PO PRN (20:32)
[2017-11-18] MEDS: Acetaminophen 325 MG TABLET PO PRN (20:55)
[2017-11-19] MEDS: Nicotine 2 MG GUM BC PRN ×4 (08:46→18:04)
[2017-11-19] MEDS: Divalproex (12 HR) 500 MG TABLET PO SCH ×2 (08:47→12:21)
--- NOTE | 2017-11-19 12:12 | Psychiatry Progress Note ---
Date of Encounter: 11/19/17 Time of Encounter: 11:58 Subjective Interval history: Patient seen today , case d/w treatment team, he refused his medications today as per staff and states he wants his dope . As per patient he did not take them as was asleep and i call my medicine dope, i have been calling them for years. today states he is not suicidal and do not want to hurt self , he misses his dog , he states psychosis also getting better, sleep was good had 8 hrs of sleep. his depakote level was low , he is on 1000 mg a day.started 2 days ago. will increase depakote to 1500 mg , states he was on 1500 mg before. denies side effects. will continue close observation and treatment. Review of Systems Psychiatric: Reports: depression, anxiety, abnormal sleep pattern, auditory hallucinations, visual hallucinations, difficulty concentrating, irritability, mood swings Results - Vital Signs Vital Signs: Temp Pulse Resp BP Pulse Ox 97.4 F L 61 16 135/91 96 11/19/17 09:00 11/19/17 09:00 11/19/17 09:00 11/19/17 09:00 11/17/17 01:28 - Labs Labs: Laboratory Results - last 24 hr 11/18/17 12:53 Valproic Acid 24 L Assessment and Plan (1) Suicidal ideation Current visit: Yes Status: Acute Risks, benefits, side effects, alternatives discussed w/pt: Yes Patient agreeable to treatment: Yes (2) Bipolar disorder with psychotic features Current visit: No Status: Acute Risks, benefits, side effects, alternatives discussed w/pt: Yes Patient agreeable to treatment: Yes (3) Substance abuse Current visit: No Status: Acute Risks, benefits, side effects, alternatives discussed w/pt: Yes Consult Discharge Plan - Plan Referrals: [facility] [Outside] ( establish in care, you may walk into [facility] at [address], [place] Friday-Friday from 8:00am until noon. Please bring photo ID, insurance card and utility bill or proof of residence. After your intake appointment, you will be rescheduled for continued outaptient follow-up appointmetns, and you will be scheduled to see the psychiatric prescriber.) Psychiatry Exam - Constitutional Vitals: Temp Pulse Resp BP Pulse Ox 97.4 F L 61 16 135/91 96 11/19/17 09:00 11/19/17 09:00 11/19/17 09:00 11/19/17 09:00 11/17/17 01:28 General appearance: age & developmentally appropriate, well-groomed, well- nourished - Musculoskeletal Gait: normal Station: other Strength & Tone: normal for patient - Psychiatric Patient Orientation: Yes Person, Yes Time, Yes Place Level of alertness: Alert Behavior: cooperative, guarded Psychomotor activity: Normal Eye Contact: Maintains Eye Contact Mood Description: Anxious Affect description: congruent with mood Speech Volume: Normal Speech pattern: coherent Language & Vocabulary: consistent with education Thought Process: Slowed Thinking Thought Content: Yes Preoccupation, Yes Paranoid delusion Perceptual Disturbances: Yes Auditory hallucinations Attention Span Ability: Unable to Sustain Attention Memory Description: Grossly Intact Patient Reliability: Reliable Historian Fund of knowledge: Yes average Intelligence Estimate: Average Judgment: Limited Insight: Partial
[2017-11-19] MEDS: Valproic Acid 250 MG CAPSULE PO SCH (20:21)
[2017-11-19] MEDS: OLANZapine 10 MG TAB.RAPDIS PO SCH (20:23)
[2017-11-20] MEDS: Nicotine 2 MG GUM BC PRN ×5 (07:07→20:55)
[2017-11-20] MEDS: Valproic Acid 250 MG CAPSULE PO SCH ×2 (09:43→20:54)
--- NOTE | 2017-11-20 10:34 | Psychiatry Progress Note ---
Date of Encounter: 11/20/17 Time of Encounter: 10:11 Subjective Interval history: Patient seen today, case d/w treatment team and staff , patient is doing better , states he is not suicidal or homicidal, and voices are gone and has not seen demon since yesterday . he denies side effects , he is only attending one group , states i am not group person , but has been compliant with medication, refused one time as per himwas sleeping. patient at present doing better , start discharge planning. Review of Systems Psychiatric: Reports: anxiety, abnormal sleep pattern, visual hallucinations, difficulty concentrating Results - Vital Signs Vital Signs: Temp Pulse Resp BP Pulse Ox 97.4 F L 61 16 135/91 96 11/19/17 09:00 11/19/17 09:00 11/19/17 09:00 11/19/17 09:00 11/17/17 01:28 Assessment and Plan (1) Suicidal ideation Current visit: Yes Status: Acute Risks, benefits, side effects, alternatives discussed w/pt: Yes Patient agreeable to treatment: Yes (2) Bipolar disorder with psychotic features Current visit: No Status: Acute Risks, benefits, side effects, alternatives discussed w/pt: Yes Patient agreeable to treatment: Yes (3) Substance abuse Current visit: No Status: Acute Risks, benefits, side effects, alternatives discussed w/pt: Yes Consult Discharge Plan - Plan Referrals: [facility] [Outside] ( establish in care, you may walk into [facility] at [address] [place] [address] Friday-Friday from 8:00am until noon. Please bring photo ID, insurance card and utility bill or proof of residence. After your intake appointment, you will be rescheduled for continued outaptient follow-up appointmetns, and you will be scheduled to see the psychiatric prescriber.) Psychiatry Exam - Constitutional Vitals: Temp Pulse Resp BP Pulse Ox 97.4 F L 61 16 135/91 96 11/19/17 09:00 11/19/17 09:00 11/19/17 09:00 11/19/17 09:00 11/17/17 01:28 General appearance: age & developmentally appropriate - Musculoskeletal Gait: normal Station: other Strength & Tone: normal for patient - Psychiatric Patient Orientation: Yes Person, Yes Time, Yes Place Level of alertness: Alert Behavior: cooperative Psychomotor activity: Normal Eye Contact: Maintains Eye Contact Mood Description: Euthymic/stable Affect description: constricted Speech Volume: Normal Speech pattern: coherent Language & Vocabulary: consistent with education Thought Process: Intact Thought Content: Yes Preoccupation Perceptual Disturbances: No Auditory hallucinations, No Visual hallucinations Attention Span Ability: Capable of Focused Attention Memory Description: Grossly Intact Patient Reliability: Reliable Historian Fund of knowledge: Yes average Intelligence Estimate: Average Judgment: Fair Insight: Partial
[2017-11-20] MEDS: OLANZapine 10 MG TAB.RAPDIS PO SCH (20:54)
[2017-11-20] MEDS: hydrOXYzine pamoate 25 MG CAPSULE PO PRN (20:55)
[2017-11-20] MEDS: traZODone 50 MG TABLET PO PRN (20:55)
[2017-11-20] MEDS: Acetaminophen 325 MG TABLET PO PRN (22:03)
[2017-11-21] MEDS: Nicotine 2 MG GUM BC PRN ×3 (07:53→13:37)
[2017-11-21] MEDS: Valproic Acid 250 MG CAPSULE PO SCH (08:02)
--- NOTE | 2017-11-21 10:07 | Discharge Summary ---
Date of Encounter: 11/21/17 Time of Encounter: 09:30 Diagnosis - Discharge Diagnosis (1) Suicidal ideation Status: Resolved Comments: patient denies suicidal / homicidal ideation. stable at present. (2) Bipolar disorder with psychotic features Status: Acute Comments: patient improved with treatment and structured environment and counselling. (3) Substance abuse Status: Acute Comments: patient uses marijuana and use ocassionally , declined to go to outpatient treatment. Medications - Discharge Medications Prescriptions: Citalopram [CeleXA] 20 mg PO DAILY #14 tablet OLANZapine [Zyprexa Zydis] 15 mg PO HS #14 tab.rapdis Prazosin [Minipress] 1 mg PO HS #14 capsule Valproic Acid [Depakene] 500 mg PO QAM #14 capsule Valproic Acid [Depakene] 1,000 mg PO HS #14 capsule Citalopram [CeleXA] 20 mg PO DAILY #14 tablet 11/21/17 [Rx] OLANZapine [Zyprexa Zydis] 15 mg PO HS #14 tab.rapdis 11/21/17 [Rx] Prazosin [Minipress] 1 mg PO HS #14 capsule 11/21/17 [Rx] Valproic Acid [Depakene] 1,000 mg PO HS #14 capsule 11/21/17 [Rx] Valproic Acid [Depakene] 500 mg PO QAM #14 capsule 11/21/17 [Rx] hydrOXYzine pamoate [HydrOXYzine Pamoate] 25 mg PO TID PRN capsule 11/21/17 [Rx ] 3 Allergy/AdvReac Type Severity Reaction Status Date / Time Penicillins Allergy Hives Verified 08/02/16 22:06 broccoli Allergy Swelling Uncoded 08/02/16 22:07 of Lip/Tongue/Throat Results Procedures and tests throughout hospitalization: Completed Lab Orders Category Date Time Status Valproate Routine Lab 11/18/17 12:53 Completed Provider Date of admission: 11/17/17 10:20 Primary care physician: PCP NONE Psychiatry Exam - Constitutional Vitals: Temp Pulse Resp BP Pulse Ox 98.8 F 77 16 143/93 96 11/20/17 19:46 11/20/17 19:46 11/20/17 19:46 11/20/17 19:46 11/17/17 01:28 General appearance: age & developmentally appropriate, well-groomed, well- nourished - Musculoskeletal Gait: normal Station: relaxed Strength & Tone: normal for patient - Psychiatric Patient Orientation: Yes Person, Yes Time, Yes Place Level of alertness: Alert Behavior: calm, cooperative Psychomotor activity: Normal Eye Contact: Maintains Eye Contact Mood Description: Euthymic/stable Affect description: congruent with mood Speech Volume: Normal Speech pattern: clear, coherent Language & Vocabulary: consistent with education Thought Process: Intact Thought Content: Yes Intact Perceptual Disturbances: No Auditory hallucinations, No Visual hallucinations Attention Span Ability: Capable of Focused Attention Memory Description: Grossly Intact Patient Reliability: Reliable Historian Fund of knowledge: Yes average Intelligence Estimate: Average Judgment: Good Insight: Full Hospital Course Hospital course: Mr. Matthews is a 47 year old male He presented to ED with suicidal ideation and plan to jump off the bridge. he has h/o depression and psychosis, bipolar , as per him he has been taking his medication but does not feel they help him. he came to visit his x and children states i told her i will sign divorce papers with my blood and then became suicidal and came ti ED. He was psychotic , paranoid with a/v hallucination , stated the dark man with black gown follows me , he was right behind me all time he followed me here yesterday , when i focus he disappears but then he appears , i think he is trying to kill me , i had seen him 20 yrs ago , he is after me, i hear people whispering and yelling , they speak languages i do not understand , he is loud and irritable at times, he had been pacing most of the time states it relaxes me. i see demons coming thru the [place] and peeking around corners. i feel sad and irritable, i just want to kill myself as i am afraid to live as i am scared what they might do to me, pluck my eyes out , poison my food. remains suicidal and wants to hurt and get rid of those demons. not sleeping as scared creature will kill him as he knows and feels him . During course of hospitalization he responded to increase dose of his home medications and prazosin for his nightmares and celexa for his depression , he denied any side effects. he is aware of his medications ,their names and side effects, he will follow up with his clinic of several years and at present not in danger to self/others. Time spent discussing smoking cessation with patient: 3 to 10 minutes Does patient wish to continue nicotine replacement upon disc: No (patient declined patches/gum ) - Time Spent with Patient Total time spent providing and/or coordinating discharge services: Greater than 30 minutes Assessment and Plan - Patient/Caregiver Discharge Instructions Activity: resume usual activities as tolerated Diet: regular diet - Follow up Plan Follow up with: [facility] [Outside] ( establish in care, you may walk into [facility] at [address], [place] Friday-Friday from 8:00am until noon. Please bring photo ID, insurance card and utility bill or proof of residence. After your intake appointment, you will be rescheduled for continued outaptient follow-up appointmetns, and you will be scheduled to see the psychiatric prescriber.) Functional capacity at discharge: independent ambulation Overall status at discharge: Stable Disposition: Home, Self-Care Quality - Multiple Antipsychotics Patient discharged on 2 or more antipsychotic medications: No Procedures - Procedures Procedures: Medication Management, Crisis Stabilization, Supportive Therapy, Group Therapy, Psychoeducational Therapy
[2017-11-21 10:19] VITALS: BP 131/86
== END 2017-11-21 14:10 | disposition home or self-care (01) | DRG 885 ==
LOC: EMEROO 01:26 → 1ANU 05:35 → EMEROO 05:35 → 1ANU 10:20
PROVIDERS: ADMIT Psychiatry & Neurology Psychiatry; ATTEND Psychiatry & Neurology Psychiatry